=== PATIENT | male | born 1960 | race Caucasian/White ===

== ENCOUNTER → 2020-01-01 | Outpatient (CLI) | payer OTHER | LOC: RAD 12:56 | PROVIDERS: ATTEND General Practice | DX: R06.6 Hiccough (principal) | CPT/HCPCS: 93005 ==

== ENCOUNTER → 2024-05-26 | Day surgery (SDC) | payer OTHER ==
[~2024-05-26] MED LIST: ACETAMINOPHEN 1000 MG/100 ML 100 ML IV ONE; AMBIEN10 MG PO; ARIMIDEX1 MG PO; BENADRYL25 M1 PO; CEFDINIR300 MG PO; CEFTRIAXONE 1 GM VIAL ONE; DEXAMETHASONE SOD PHOS INJ 4 MG/ML SDV ONE; FENTANYL CITRATE/PF 100MCG/2 ML INJ ONE; FLOMAX0.4 MG PO; LEVOFLOXACIN750 MG PO; LIDOCAINE HCL 2% LOCAL INJ 5 ML SDV VIAL INJ ONE; MELATONIN3 MG PO; MIDAZOLAM HCL 2 MG/2 ML VIAL ONE; MILK THISTLE175 M2 PO; ONDANSETRON HCL INJ 2MG/ML 2ML 2 MG/ML VIAL ONE; OVIDREL250 MCG/0. PO; PROPOFOL IV EMULSION 10 MG/ML 20 ML VIAL ONE; SEVOFLURANE INHAL SOLN 250 ML PEN BTL ONE; TRT IM; VITAMIN D310 MCG PO; VITAMIN E400 UNI1 PO; XANAX0.25 MG PO
[2024-05-26] MEDS: LACTATED RINGER'S 1,000 ML ONE (11:37)
[2024-05-26] MEDS: GENTAMICIN 80MG/NS 100 ML 200 ML IV ONE (11:55)
[2024-05-26 14:30] VITALS: TEMP 97.5
[2024-05-26] MEDS: FENTANYL CITRATE/PF 100MCG/2 ML INJ ONE (15:05)
[2024-05-26] MEDS: PHENAZOPYRIDINE HCL 100 MG TAB ONE (15:06)
== END | disposition home or self-care (01) ==
LOC: OR 09:50
PROVIDERS: ATTEND Urology
DX: N20.2 Calculus of kidney with calculus of ureter (principal); Z46.6 Encounter for fitting and adjustment of urinary device; I10 Essential (primary) hypertension; K21.9 Gastro-esophageal reflux disease without esophagitis; K75.9 Inflammatory liver disease, unspecified; Z01.810 Encounter for preprocedural cardiovascular examination; Z01.812 Encounter for preprocedural laboratory examination; Z01.818 Encounter for other preprocedural examination; Z79.899 Other long term (current) drug therapy
CPT/HCPCS: 36415; 52356; 74018; 74420; 80053; 84550; 85025; 85610; 85730; 88300; 93005; C1769; C2617; J0131; J0696 ×2; J1100; J1580; J2003; J2250; J2405; J2704; J3010; J7121 ×2

== ENCOUNTER → 2024-06-10 | Day surgery (SDC) | payer OTHER ==
[2024-06-09 10:45] LABS: BASOPHILS % 0.3 % (0.0-1.0); EOSINOPHILS # (AUTO) 0.2 (0.0-0.4); EOSINOPHILS % 3.3 % (0.0-6.0); HEMATOCRIT 53.9 % (38.2-49.6); HEMOGLOBIN 16.9 g/dL (14.0-18.0); LYMPHOCYTES # (AUTO) 1.3 (1.0-3.2); LYMPHOCYTES % 21.9 % (18.0-39.1); MEAN CORPUSCULAR HEMOGLOBIN 27.6 pg (28-32); MEAN CORPUSCULAR HGB CONC 31.4 g/dL (31-35); MEAN CORPUSCULAR VOLUME 87.9 fL (81-99); MONOCYTES % 16.3 % (4.4-11.3); NEUTROPHILS # (AUTO) 3.6 (2.1-6.9); PLATELET COUNT 242 x10e3/uL (140-360); RED BLOOD COUNT 6.13 x10e6/uL (4.3-5.7); RED CELL DISTRIBUTION WIDTH 14.3 % (11.7-14.4); WHITE BLOOD COUNT 6.13 x10e3/uL (4.8-10.8)
[2024-06-09 11:31] LABS: ANION GAP 12.1 mmol/L (8-16); CALCIUM 9.5 mg/dL (8.4-10.2); CREATININE, SERUM 1.27 mg/dL (0.72-1.25); POTASSIUM 4.1 mmol/L (3.5-5.1); URIC ACID 6.8 mg/dL (4.8-8.0)
[~2024-06-10] MED LIST changes: -ACETAMINOPHEN 1000 MG/100 ML 100 ML IV ONE; -CEFTRIAXONE 1 GM VIAL ONE; -DEXAMETHASONE SOD PHOS INJ 4 MG/ML SDV ONE; +PHENAZOPYRIDINE HCL 100 MG TAB ONE; -SEVOFLURANE INHAL SOLN 250 ML PEN BTL ONE
[2024-06-10] MEDS: GENTAMICIN 80MG/NS 100 ML 200 ML IV ONE (11:01)
[2024-06-10] MEDS: LACTATED RINGER'S 1,000 ML ONE (11:11)
[2024-06-10] MEDS: CEFTRIAXONE 1 GM VIAL ONE (11:29)
[2024-06-10 15:16] VITALS: TEMP 97
[2024-06-10 16:00] VITALS: BP 154/78; PULSE 71; RESP 18; O2SAT 98
== END | disposition home or self-care (01) ==
LOC: OR 10:54
PROVIDERS: ATTEND Urology
DX: Z46.6 Encounter for fitting and adjustment of urinary device (principal); Z87.442 Personal history of urinary calculi; N40.0 Benign prostatic hyperplasia without lower urinary tract symptoms; N39.0 Urinary tract infection, site not specified; Z01.812 Encounter for preprocedural laboratory examination; Z01.818 Encounter for other preprocedural examination; Z79.899 Other long term (current) drug therapy
CPT/HCPCS: 36415; 52005; 74018; 74420; 80048; 84550; 85025; C1769; J0696; J1580; J2003; J2250; J2405; J2704; J3010; J7121